=== PATIENT | male | born 1995 | race African-American/Black ===

== ENCOUNTER 2024-06-23 18:23 | Emergency (ER) | payer OTHER ==
[~2024-06-23] VITALS: Ht 182.9 cm; Wt 123.6 kg
[2024-06-23 18:41] VITALS: TEMP 98.4
[2024-06-23 18:46] VITALS: BP 176/100; PULSE 125; RESP 20; O2SAT 100
[2024-06-23] MEDS: LORazepam 1 MG TABLET PO ONE (19:12)
[2024-06-23 19:26] LABS: BASOPHILS % (AUTO) 0.9 % (0.0-2.0); EOSINOPHILS % (AUTO) 2.3 % (1.0-6.0); HEMATOCRIT 42.8 % (41-53); LYMPHOCYTES # (AUTO) 2.1 K/uL (1.0-4.8); LYMPHOCYTES % (AUTO) 28.4 % (22.0-44.0); MEAN CORPUSCULAR HEMOGLOBIN 28.4 pg (26.0-34.0); MEAN CORPUSCULAR HGB CONC 32.6 G/dL (31.0-37.0); MEAN CORPUSCULAR VOLUME 87 fL (80-100); MONOCYTES # (AUTO) 0.7 K/uL (0.1-1.0); MONOCYTES % (AUTO) 9.5 % (2.0-9.0); NEUTROPHILS # (AUTO) 4.4 K/uL (1.8-7.7); NEUTROPHILS % (AUTO) 58.9 % (40.0-70.0); PLATELET COUNT (AUTO) 291 K/uL (150-450); RED BLOOD CELL COUNT(AUTO) 4.92 MIL/uL (4.50-5.90); RED CELL DISTRIBUTION WIDTH 13.3 % (11.5-14.5); WHITE BLOOD COUNT (AUTO) 7.5 K/uL (4.5-11.0)
[2024-06-23 19:37] LABS: ANION GAP 17 mmol/L (8-16); CARBON DIOXIDE 20 mmol/L (22-29); CHLORIDE 99 mmol/L (98-107); CREATININE 1.47 mg/dL (0.60-1.30); GLOMERULAR FILTR. RATE CALC > 60 mL/min (>60); GLUCOSE,RANDOM 177 mg/dL (70-110); POTASSIUM 3.1 mmol/L (3.5-5.1); SODIUM SERUM 136 mmol/L (136-145); UREA NITROGEN, BLOOD 16 mg/dL (7-18)
[2024-06-23 20:34] LABS: THYROID STIMULATING HORMONE 6.39 uIU/mL (0.36-3.74)
[2024-06-23] MEDS: MAGNESIUM OXIDE 400 MG TABLET PO ONE (20:51)
[2024-06-23] MEDS: POTASSIUM CHLORIDE 20 MEQ ER TABLET PO ONE (20:52)
== END 2024-06-23 21:33 | disposition home or self-care (01) ==
LOC: EMS 18:23
DX: R20.2 Paresthesia of skin (principal); R00.2 Palpitations; E87.6 Hypokalemia; E83.42 Hypomagnesemia; F12.90 Cannabis use, unspecified, uncomplicated; Z87.891 Personal history of nicotine dependence
CPT/HCPCS: 80048; 83735; 84443; 85025; 93005; 99284

== ENCOUNTER 2025-05-19 21:54 | Emergency (ER) | payer SELFPAY ==
[~2025-05-19] VITALS: Ht 183.5 cm; Wt 125.0 kg
[2025-05-19 22:18] VITALS: BP 158/73; PULSE 119; RESP 16; TEMP 99.3; O2SAT 98
[2025-05-20] MEDS ORDERED: CYCL-448 PO (01:20)
[2025-05-20] MEDS: KETOROLAC TROMETHAMINE 30 MG/ML VIAL IM ONE (01:23)
== END 2025-05-20 01:30 | disposition home or self-care (01) ==
LOC: EMS 21:59
DX: S39.91XA Unspecified injury of abdomen, initial encounter (principal); M79.661 Pain in right lower leg; F12.90 Cannabis use, unspecified, uncomplicated; X58.XXXA Exposure to other specified factors, initial encounter; Y93.01 Activity, walking, marching and hiking; Y92.89 Other specified places as the place of occurrence of the external cause; Y99.8 Other external cause status
CPT/HCPCS: 99283; 96372; J1885